=== PATIENT | female | born 1945 | race American Indian/Alaskan Native ===

== ENCOUNTER 2018-01-11 08:09 | Outpatient (CLI) | payer MEDICARE ==
--- NOTE | 2018-01-12 11:06 | Mammography Report ---
BILATERAL DIGITAL SCREENING MAMMOGRAM with CAD: 01/11/18 08:09:00 CLINICAL: Routine screening. COMPARISON:09/29/16 FINDINGS: The breasts are heterogeneously dense, which may obscure small masses. No mass, architectural distortion or suspicious calcifications. IMPRESSION: No mammographic evidence of malignancy. BI-RADS CATEGORY: 1 - - Negative RECOMMENDATION: Routine mammographic screening in one year. COMMENT: Patient follow-up letters are generated by our [employer] application.
== END 2018-01-11 08:10 | disposition home or self-care (01) ==
LOC: MAMMO 08:09
PROVIDERS: ATTEND Internal Medicine
DX: Z12.31 Encounter for screening mammogram for malignant neoplasm of breast (principal)
CPT/HCPCS: 77067

== ENCOUNTER 2019-02-14 08:26 | Outpatient (CLI) | payer MEDICARE ==
--- NOTE | 2019-02-14 09:45 | Mammography Report ---
BILATERAL DIGITAL SCREENING MAMMOGRAM with CAD : 02/14/19 08:26:00 CLINICAL: Routine screening. COMPARISON:01/11/18 FINDINGS: The breasts are heterogeneously dense, which may obscure small masses.A group of left inner predominantly punctate calcifications are stable. No mass, architectural distortion or suspicious calcifications. IMPRESSION: No mammographic evidence of malignancy. Benign left calcifications. BI-RADS CATEGORY: 2 -- Benign RECOMMENDATION: Routine mammographic screening in one year. COMMENT: Patient follow-up letters are generated by our [employer] application.
== END 2019-02-14 08:27 | disposition home or self-care (01) ==
LOC: MAMMO 08:26
PROVIDERS: ATTEND Internal Medicine
DX: Z12.31 Encounter for screening mammogram for malignant neoplasm of breast (principal); E78.00 Pure hypercholesterolemia, unspecified; I10 Essential (primary) hypertension; E66.9 Obesity, unspecified; Z90.89 Acquired absence of other organs
CPT/HCPCS: 77067

== ENCOUNTER 2020-07-09 09:42 | Outpatient (CLI) | payer MEDICARE ==
--- NOTE | 2020-07-09 12:25 | Mammography Report ---
BILATERAL DIGITAL SCREENING MAMMOGRAM WITH CAD HISTORY: Screening mammogram. TECHNIQUE: Routine digital mammographic imaging performed. This examination was interpreted with laura choi benefit of Computer-aided Detection analysis. COMPARISON: 02/14/2019, 01/11/2018, 09/29/2016, 01/21/2015. FINDINGS: Breast Density: scattered fibroglandular appearance of the breast tissue. Digital CC and MLO views demonstrate increasing calcifications in the left lower inner breast. No hopkins spicious findings in the right breast. IMPRESSION: Increasing left lower inner breast calcifications for which magnification views is recommended. BIRADS 0-Incomplete: Needs additional imaging evaluation NOTE: WE WILL RECALL THE PATIENT FOR THIS ADDITIONAL EVALUATION. FURTHER INFORMATION: According to the [employer], yearly mammograms are recommend ed starting at age 40 and continuing as long as a woman is in good health. Clinical Breast Exams shou ld be part of a periodic health exam-about every 3 years for women in their 20s and 30s and every yea r for women 40 and over. Breast self exam is an option for women starting in their 20s. Any breast ch jo ann noted on a breast self exam should be reported promptly to the patient's healthcare provider. Br east MRI is recommended for women with an approximately 20-25% or greater lifetime risk of breast can cer, including women with a strong family history of breast or ovarian cancer and women who have been treated for Hodgkin's disease. A negative Mammography report should not discourage follow up or biopsy of a clinically significant f inding and/or abnormality. Dense breast tissue may obscure small neoplasms. The patient will be entered into a reminder system with a target due date for the next screening mamm ogram. Signer Name: Mukesh Garcia MD Signed: 07/09/2020 12:20 PM Workstation Name: [id number]
== END 2020-07-09 09:43 | disposition home or self-care (01) ==
LOC: MAMMO 09:42
PROVIDERS: ATTEND Internal Medicine
DX: Z12.31 Encounter for screening mammogram for malignant neoplasm of breast (principal); N64.89 Other specified disorders of breast
CPT/HCPCS: 77067

== ENCOUNTER 2020-07-31 10:42 | Outpatient (CLI) | payer MEDICARE ==
--- NOTE | 2020-07-31 11:57 | Mammography Report ---
DIGITAL LEFT DIAGNOSTIC MAMMOGRAM WITH CAD, WITHOUT TOMOSYNTHESIS 07/31/2020 INDICATION: Abnormal screening mammogram TECHNIQUE: Digital left mammographic imaging was performed. Magnification views were obtained. This examination was interpreted with the benefit of Computer-aided Detection analysis. COMPARISON: Screening mammography 07/09/2020 and 02/14/2019 Breast Density: There are scattered areas of fibroglandular density. FINDINGS: The new grouped microcalcifications in the lower medial left breast remain indeterminate on magnification views. IMPRESSION: Indeterminate grouped microcalcifications Follow up recommendation: Stereotactic biopsy BI-RADS Category 4: Suspicious for Malignancy. A "normal" or negative report should not discourage follow up or biopsy of a clinically significant f inding. A written summary of these findings will be mailed to the patient. The patient will be entered into a mammography reporting system which will generate a reminder letter for the patient's next appointmen t at the appropriate interval. According to the [employer], yearly mammograms are recommended starting at age 40 and continuing as long as a woman is in good health. Breast MRI is recommended for women with an lorena roximately 20-25% or greater lifetime risk of breast cancer, including women with a strong family his tory of breast or ovarian cancer and women who have been treated for Hodgkin's disease. Signer Name: Chase Morris MD Signed: 07/31/2020 11:52 AM Workstation Name: [id number]
== END 2020-07-31 10:43 | disposition home or self-care (01) ==
LOC: MAMMO 10:42
PROVIDERS: ATTEND Internal Medicine
DX: R92.0 Mammographic microcalcification found on diagnostic imaging of breast (principal)

== ENCOUNTER 2020-08-20 08:54 | Outpatient (CLI) | payer MEDICARE ==
--- NOTE | 2020-08-20 11:28 | Mammography Report ---
PERCUTANEOUS STEREOTACTIC-GUIDED LEFT BREAST BIOPSY WITH MARKER PLACEMENT HISTORY: Left breast calcifications. COMPARISON: 07/31/2020, 07/09/2020. CONSENT: Technique, risks and alternatives were discussed with the patient and informed written conse nt obtained. PROCEDURE: The patient was placed in the prone position on the Siemens biopsy table. The calcifications in quest ion in the left lower inner breast were targeted mammographically. Information Services Vice President and stereo pair images were acquired to generate the computer-derived coordinates for targeting. The skin overlying the chosen bi opsy site were cleansed with Betadine. The skin and superficial soft tissues were anesthetized with a small amount of buffered 1% lidocaine. The deeper soft tissues were anesthetized with buffered 1% lidocaine with epinephrine. A small dermatotomy was created through which the vacuum-assisted biopsy device was placed. Pre and p ost fire stereo pair images were acquired to confirm appropriate needle trajectory. Using vacuum assi stance, multiple core specimen samples were acquired. A post procedure stereo pair image suggested ad equate sampling of the target. A post procedure specimen radiograph confirmed calcifications within c ore specimen samples. A biopsy marker was deposited at the biopsy site, and appropriate biopsy marke r deposition confirmed via subsequent post procedure mammograms. Manual pressure was applied at the biopsy site to achieve hemostasis. The incision margins were appro ximated with Steri-Strips. Postprocedure care instructions were administered in both verbal and writt en forms. The patient voiced understanding and departed the [facility] in stable, satisfactory con dition. IMPRESSION Technically successful stereotactic guided biopsy of left lower inner breast calcifications. An addendum will be added to this report once pathology results are available. Signer Name: Mukesh Garcia MD Signed: 08/20/2020 11:24 AM Workstation Name: [id number]
--- NOTE | 2020-08-20 11:30 | Mammography Report ---
LEFT DIAGNOSTIC MAMMOGRAM INDICATION: Left breast calcifications, status post stereotactic biopsy. COMPARISON: 07/31/2020, 07/09/2020 FINDINGS: Left breast CC and LM projection mammograms were obtained. These document the accurate location of a biopsy marker following stereotactic biopsy of left lower inner breast calcifications. A few residual calcifications persist. IMPRESSION: Mammographic images document accurate location of biopsy marker status post stereotactic biopsy of le ft lower inner breast calcifications. BI-RADS Category 4: Suspicious for Malignancy. Signer Name: Mukesh Garcia MD Signed: 08/20/2020 11:25 AM Workstation Name: [id number]
== END 2020-08-20 08:55 | disposition home or self-care (01) ==
LOC: SPVWC 08:54
PROVIDERS: ATTEND Internal Medicine
DX: R92.8 Other abnormal and inconclusive findings on diagnostic imaging of breast (principal); R92.1 Mammographic calcification found on diagnostic imaging of breast
CPT/HCPCS: 19081; 77065; 88305; A4648; 88341; 88342

== ENCOUNTER 2020-09-16 14:47 | Outpatient (CLI) | payer MEDICARE ==
--- NOTE | 2020-09-17 08:29 | Magnetic Resonance Report ---
Bilateral breast MRI with and without contrast. History: New diagnosis left breast cancer Procedure: Axial T1 and T2-weighted fat-sat images were obtained precontrast. 16 cc MultiHance was i njected intravenously and serial axial T1-weighted images with fat saturation were obtained postcontr ast. 3-D MIP projections, Kinetic analysis and subtraction imaging was utilized to evaluate. A Shareable Social 8 channel breast coil was utilized for image acquisition. Comparison: Left mammogram 07/31/2020 Findings: Background level of enhancement is minimal. No suspicious axillary or clavicular nodes are identified. No abnormal bone marrow signal is seen. No significant chest wall enhancement is noted. Right breast: No suspicious lesions are seen. Left breast: Biopsy changes are noted minimal surrounding hyperemia. No obvious neoplastic type enhan cement is seen. Impression: No suspicious lesions are seen BIRADS: 6: Known diagnosis breast cancer Signer Name: Chase Morris MD Signed: 09/17/2020 8:24 AM Workstation Name: [id number]
== END 2020-09-16 14:48 | disposition home or self-care (01) ==
LOC: SPVIMAG 14:47
PROVIDERS: ATTEND Surgery
DX: K76.89 Other specified diseases of liver (principal); R92.1 Mammographic calcification found on diagnostic imaging of breast; N60.82 Other benign mammary dysplasias of left breast; Z80.3 Family history of malignant neoplasm of breast
CPT/HCPCS: A9577; C8908; 77049

== ENCOUNTER 2020-10-29 07:27 | Outpatient (CLI) | payer MEDICARE ==
--- NOTE | 2020-10-29 10:01 | Ultrasound Report ---
ULTRASOUND ABDOMEN, COMPLETE INDICATION: ATTENTION TO LIVER. COMPARISON: No relevant prior imaging study available. FINDINGS: Pancreas: No significant abnormality. Abdominal Aorta: Proximal aorta is incompletely visualized. The mid and distal aorta appear normal in size. IVC: No significant abnormality. Liver: The liver measures 15 cm in length. Diffusely echogenic appearance of the liver with a 1.3 cm cyst in the right lobe. Normal hepatopedal blood flow in the main portal vein. Gallbladder: There is cholelithiasis with layering gallstones measuring up to 2.5 cm in maximal dimen luis. Bile ducts: No significant abnormality. Common bile duct measures 6 mm. Kidneys: Right: 10.3 cm in length. Rounded hyperechoic focus measuring 1.2 cm in maximal dimension the upper pole. Left: 10.2 cm in length. No significant abnormality. Spleen: No significant abnormality. Free fluid: None. Additional Findings: There is a rounded hyperechoic masslike area measuring 5.3 cm maximal dimension between the liver and right kidney, likely in the region of the adrenal gland. IMPRESSION: 1. Diffusely echogenic appearance of the liver, most commonly seen with steatosis. Small simple right hepatic lobe cyst also noted. 2. Cholelithiasis without cholecystitis. 3. Small rounded hyperechoic focus in the upper pole of the right kidney could represent an angiomyol ipoma. 4. Hyperechoic masslike structure in the region of the right adrenal gland most likely represents an adrenal mass. Recommend follow-up pre and postcontrast CT for further evaluation of this finding and the right renal finding. Signer Name: Hector Shields MD Signed: 10/29/2020 9:57 AM Workstation Name: [id number]
== END 2020-10-29 07:28 | disposition home or self-care (01) ==
LOC: US 07:27
PROVIDERS: ATTEND Surgery
DX: R92.8 Other abnormal and inconclusive findings on diagnostic imaging of breast (principal); K76.0 Fatty (change of) liver, not elsewhere classified; K80.20 Calculus of gallbladder without cholecystitis without obstruction; K76.89 Other specified diseases of liver
CPT/HCPCS: 76700

== ENCOUNTER 2020-11-05 06:11 | Day surgery (SDC) | payer MEDICARE ==
[~2020-11-05 06:11] MED LIST: BUPIVACAINE/PF (0.25%) 2.5 MG/ML 30 ML VIAL INFILTRATI ONE; LIDOCAINE (1%) 10 MG/1 ML VIAL 20 ML MDV INFILTRATI ONE; SODIUM CHLORIDE 0.9% IRR 1,500 ML BOTTLE IR ONE; ceFAZolin/Water 2 GM/20 ML 2 GM/20 ML SYRINGE IV NR
[2020-11-05] MEDS ORDERED: LIDOCAINE (1%) 10 MG/1 ML VIAL 20 ML MDV ONE ×2 (07:30→09:37)
[2020-11-05] MEDS ORDERED: MIDAZOLAM 2 MG/2 ML INJ IV NR (08:05)
[2020-11-05] MEDS ORDERED: LACTATED RINGERS 1,000 ML IV SCH (08:15)
[2020-11-05] MEDS ORDERED: HYDROmorphone 1 MG/1 ML INJ IV PRN ×2 (08:24)
[2020-11-05] MEDS ORDERED: ONDANSETRON 4 MG/2 ML INJ IV PRN (08:24)
--- NOTE | 2020-11-05 08:25 | Anesthesia Day of Surgery ---
Anesthesia Day of Surgery - Day of Surgery Patient Examined: Yes Patient H&P Reviewed: Yes Patient is NPO: Yes
--- NOTE | 2020-11-05 08:26 | Anesthesia Consultation ---
Anesthesia Consult and Med Hx Date of service: 11/05/20 - Airway Anesthetic Teeth Evaluation: Good, Partials ROM Head & Neck: Adequate Mental/Hyoid Distance: Adequate Mallampati Class: Class II Intubation Access Assessment: Good - Pre-Operative Health Status ASA Pre-Surgery Classification: ASA2 Proposed Anesthetic Plan: General - Pulmonary Hx Smoking: Yes (Former) Hx Respiratory Symptoms: No (+2FS) - Cardiovascular System Hx Hypertension: Yes - Central Nervous System Hx Psychiatric Problems: No - Gastrointestinal Hx Gastroesophageal Reflux Disease: No - Hematic Hx Sickle Cell Disease: No - Other Systems Hx Alcohol Use: Yes (Occas) Hx Cancer: Yes - Additional Comments Anesthesia Medical History Comments: +Medical clearance
[2020-11-05] MEDS ORDERED: BUPIVACAINE/PF (0.25%) 2.5 MG/ML 30 ML VIAL INFILTRATI ONE ×2 (09:38→11:05)
--- NOTE | 2020-11-05 09:51 | Mammography Report ---
LEFT BREAST NEEDLE LOCALIZATION USING X-RAY GUIDANCE The procedure was explained to the patient and informed consent obtained. PROCEDURE: Using 3 mL of 1% buffered lidocaine, a 25 gauge needle and x-ray guidance, the left breas t clip/mass at 9:00 was localized with standard needle/wire technique. There were no immediate compli cations. INTERPRETATION: 2 images made during the procedure demonstrate the needle to be properly positioned. IMPRESSION: Successful left breast lesion localization as described above. Thank you for allowing us to participate in the care of your patient. Signer Name: Alexei Aguilar Jr, MD Signed: 11/05/2020 9:47 AM Workstation Name: [id number]
[2020-11-05] MEDS ORDERED: LIDOCAINE MPF (2%) 20 MG/1 ML VIAL 5 ML ONE (10:27)
[2020-11-05] MEDS ORDERED: dexAMETHasone 20 MG/5 ML VIAL ONE (10:27)
[2020-11-05] MEDS ORDERED: propofoL 200 MG/20 ML VIAL IV ONE (10:27)
[2020-11-05] MEDS ORDERED: ONDANSETRON 4 MG/2 ML INJ ONE (10:27)
[2020-11-05] MEDS ORDERED: HYDROmorphone 1 MG/1 ML INJ ONE (10:27)
[2020-11-05] MEDS ORDERED: KETOROLAC 30 MG/1 ML INJ ONE (10:27)
[2020-11-05] MEDS ORDERED: LIDOCAINE (1%) 10 MG/1 ML VIAL 20 ML MDV INFILTRATI ONE (11:05)
[2020-11-05] MEDS ORDERED: SODIUM CHLORIDE 0.9% IRR 1,500 ML BOTTLE IR ONE (11:16)
--- NOTE | 2020-11-05 11:50 | Operative Report ---
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 Recommendations are to proceed with left breast excisional biopsy to rule out malignancy. She wished to proceed with the above procedure. Procedure in detail: The patient was taken to radiology for wire placement for localization known area of concern. Patient was then taken to the operating room. Gen. anesthesia was administered. Left breast and axilla were prepped and draped in the normal sterile operative fashion. The wire was identified around 9:00 position 7-9 cm FN. Timeout was performed. Attention was then taken towards the left breast. A 9:00 periareolar breast incision was made with a 15 blade knife and dissection taken down to subcutaneous tissues. First began raising of the anterior flap with removal of the wire from the skin with dissection take down posteriorly past the wire, followed by raising of the superior flap, inferior flap and medial flap with all flaps taken down posteriorly past the wire. The breast area of concern was appropriately removed posteriorly with the aid of the Bovie cautery. The wire was not encountered. Specimen was marked and then sent to pathology and radiology; radiograph specimen with wire and clip present. Breast cavity was irrigated and hemostasis was obtained. Breast cavity was anesthesized wtih 1% lidocained mixed with quarter percent marcaine withou epinephrine. The posterior deep breast tissues were approximated and closed using interrupted 3-0 Vicryl. The subcutaneous tissues were approximated and closed using interrupted 3-0 Vicryl followed by closing of the skin with a running 4-0 Monocryl and skin affix. The patient tolerated surgery very well and she was awaken from anesthesia without any complication and transported to PACU in good condition.
--- NOTE | 2020-11-05 11:54 | Short Stay Summary ---
Short Stay Documentation Date of service: 11/05/20 - History H&P: obtained from office - Allergies and Medications Current Medications: Allergies No Known Allergies Allergy (Unverified 10/30/20 11:05) Home Medications Medication Instructions Recorded Confirmed Last Taken Type Ibuprofen [Motrin] 800 mg PO Q8HR PRN 10/31/20 10/31/20 Unknown History Meloxicam [Mobic] 15 mg PO DAILY PRN 10/31/20 10/31/20 Unknown History Triamterene/Hydrochlorothiazid 1 each PO DAILY 10/31/20 11/05/20 11/04/20 History [Triamterene-Hctz 37.5-25 mg Cp] amLODIPine [Norvasc] 10 mg PO DAILY 10/31/20 11/05/20 11/05/20 04:30 History oxyCODONE /ACETAMINOPHEN [Percocet 1 tab PO Q6HR PRN #12 tablet 11/05/20 Unknown Rx 5/325] Active Medications Hydromorphone HCl (Hydromorphone 1 Mg/1 Ml Inj) 0.25 mg IV Q10MIN PRN PRN Reason: Pain, Moderate (4-6) Stop: 11/05/20 23:00 Hydromorphone HCl (Hydromorphone 1 Mg/1 Ml Inj) 0.5 mg IV Q10MIN PRN PRN Reason: Pain , Severe (7-10) Stop: 11/05/20 23:00 Cefazolin Sodium (Ancef/Sterile Water 2 Gm/20 Ml) 2 gm in 20 mls @ 80 mls/hr IV PREOP NR; Protocol Stop: 11/05/20 23:59 Lactated Ringer's (Lactated Ringers) 1,000 mls @ 75 mls/hr IV DIRECT IRVING Last Admin: 11/05/20 08:32 Dose: 75 mls/hr Documented by: Midazolam HCl (Midazolam 2 Mg/2 Ml Inj) 2 mg IV ONCE NR Stop: 11/05/20 23:00 Last Admin: 11/05/20 08:32 Dose: 2 mg Documented by: Ondansetron HCl (Ondansetron 4 Mg/2 Ml Inj) 4 mg IV ONCE PRN PRN Reason: Nausea And Vomiting Stop: 11/05/20 23:00 - Brief post op/procedure progress note Date of procedure: 11/05/20 Pre-op diagnosis: Left breast LCIS and papilloma Post-op diagnosis: same Procedure: Left breast needle localization excisional biopsy Anesthesia: GETA Findings: left wire and clip present Surgeon: JOANNE RESTREPO Estimated blood loss: minimal Pathology: list (left breast excisional biopsy) Specimen disposition: to lab Condition: stable - Disposition Condition at discharge: Good Disposition: DC-01 TO HOME OR SELFCARE Short Stay Discharge Plan Activity: other (no heavy lifting) Diet: regular Wound: keep clean and dry (wear breast binder; may shower in 48 hours; no baths) Follow up with: JOANNE RESTREPO MD [Staff Physician] - 7 Days Prescriptions: oxyCODONE /ACETAMINOPHEN [Percocet 5/325] 1 tab PO Q6HR PRN #12 tablet PRN Reason: Pain
--- NOTE | 2020-11-05 12:03 | Mammography Report ---
MAMMOGRAPHY SURGICAL SPECIMEN HISTORY: Post excisional biopsy COMPARISON: The localization performed earlier today. FINDINGS: A single mammographic image containing the specimen, surgical clip, ill-defined breast nodu le and localization wire is presented. IMPRESSION: Successful excisional biopsy. Please correlate with margins from formal pathology report. Signer Name: Alexei Aguilar Jr, MD Signed: 11/05/2020 11:58 AM Workstation Name: [id number]
[2020-11-05 12:51] VITALS: BP 132/69
--- NOTE | 2020-11-05 14:11 | Post Anesthesia Evaluation ---
- Post Anesthesia Evaluation Patient Participated: Yes Airway Patent: Yes Stable Respiratory Function: Yes Nausea/Vomiting: No Temp > 96.8F: Yes Pain Manageable: Yes Adequeate Hydration: Yes Anesthesia Complications: No Block Receding Appropriately: Not Applicable Patient on Ventilator: No
== END 2020-11-05 13:15 | disposition home or self-care (01) ==
LOC: OR 06:11
PROVIDERS: ATTEND Surgery
DX: D24.2 Benign neoplasm of left breast (principal); I10 Essential (primary) hypertension; M19.90 Unspecified osteoarthritis, unspecified site; Z85.3 Personal history of malignant neoplasm of breast; Z98.51 Tubal ligation status; Z79.899 Other long term (current) drug therapy; Z87.891 Personal history of nicotine dependence; Z86.19 Personal history of other infectious and parasitic diseases; Z98.49 Cataract extraction status, unspecified eye; Z90.710 Acquired absence of both cervix and uterus; Z98.890 Other specified postprocedural states; Z72.89 Other problems related to lifestyle
CPT/HCPCS: 19125; 19281; 36415; 76098; 84132; 88307; J0690; J1100; J1170; J1885; J2250; J2405; J2704; J7120; U0003

== ENCOUNTER 2020-11-25 07:30 | Outpatient (CLI) | payer MEDICARE ==
[2020-11-25 08:57] LABS: Blood Urea Nitrogen 11 mg/dL (7-17)
--- NOTE | 2020-11-25 10:35 | Cat Scan Report ---
CT ABDOMEN AND PELVIS WITH CONTRAST INDICATION / CLINICAL INFORMATION: OTHER BENIGN MAMMARY DYSPLASIAS. TECHNIQUE: Axial CT images were obtained through the abdomen and pelvis following the administration of intraven ous contrast. All CT scans at this location are performed using CT dose reduction for ALARA by means of automated exposure control. COMPARISON: Ultrasound abdomen dated 10/29/2020. FINDINGS: LOWER CHEST: LIVER: There are a few small hypodensities within the liver which are compatible with cysts. GALLBLADDER: There are 2 large calcified gallstones. No gallbladder wall thickening or pericholecysti c edema. PANCREAS: No significant abnormality. SPLEEN: No significant abnormality. ADRENALS: No significant abnormality. KIDNEYS / URETERS: There is a 5.2 x 4.8 x 3.8 cm predominantly fat density mass arising from the late ral aspect of the right kidney. This demonstrates internal vascularity and has a small enhancing comp onent inferiorly. There is no evidence of active hemorrhage. URINARY BLADDER: No significant abnormality. REPRODUCTIVE ORGANS: No significant abnormality. STOMACH / SMALL BOWEL: No significant abnormality. COLON: No significant abnormality. APPENDIX: No significant abnormality. PERITONEUM: No free fluid. No free air. No fluid collection. LYMPH NODES: No significant adenopathy. AORTA / ARTERIES: No significant abnormality. IVC / VEINS: No significant abnormality. SKELETAL SYSTEM: Mild S-shaped scoliosis involving the thoracolumbar spine. Moderate multilevel degen erative spondylosis throughout the lumbar spine. ADDITIONAL FINDINGS: None. IMPRESSION: 1. 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 There is a small enhancing component inferiorly. No evidence of hemorrhage. C ontinued follow-up is recommended. 2. Uncomplicated cholelithiasis. 3. No acute abdominopelvic abnormality. Signer Name: Jonathon Christian MD Signed: 11/25/2020 10:30 AM Workstation Name: [id number]
== END 2020-11-25 07:31 | disposition home or self-care (01) ==
LOC: CT 07:30
PROVIDERS: ATTEND Surgery
DX: K80.20 Calculus of gallbladder without cholecystitis without obstruction (principal); K76.89 Other specified diseases of liver; K82.8 Other specified diseases of gallbladder; M41.85 Other forms of scoliosis, thoracolumbar region; M47.816 Spondylosis without myelopathy or radiculopathy, lumbar region; N60.82 Other benign mammary dysplasias of left breast
CPT/HCPCS: 36415; 74177; 82565; 84520; Q9967

== ENCOUNTER 2021-03-05 09:03 | Outpatient (CLI) | payer MEDICARE ==
--- NOTE | 2021-03-05 10:12 | Mammography Report ---
DIGITAL DIAGNOSTIC MAMMOGRAM WITH CAD CONVENTIONAL, 03/05/2021 CLINICAL INFORMATION / INDICATION: Patient presents for short interval follow-up following benign lef t breast excisional biopsy. OTHER BENIGN MAMMARY DYSPLASIAS N60.82 TECHNIQUE: Digital left mammographic imaging was performed. This examination was interpreted with the benefit of Computer-aided Detection analysis. COMPARISON: Prior mammogram 07/09/2020 FINDINGS: Breast Density: There are scattered areas of fibroglandular density. No dominant mass, suspicious calcifications or architectural distortion in the left breast. There is new benign postlumpectomy change seen in the lower inner quadrant of the left breast. The pr eviously seen suspicious calcifications have been removed. IMPRESSION: 1. New benign postlumpectomy change in the left breast. No suspicious mammographic abnormality identi fied. Follow up recommendation: Back to schedule. BI-RADS Category 2: Benign. A "normal" or negative report should not discourage follow up or biopsy of a clinically significant f inding. A written summary of these findings will be mailed to the patient. The patient will be entered into a mammography reporting system which will generate a reminder letter for the patient's next appointmen t at the appropriate interval. According to the [employer], yearly mammograms are recommended starting at age 40 and continuing as long as a woman is in good health. Breast MRI is recommended for women with an lorena roximately 20-25% or greater lifetime risk of breast cancer, including women with a strong family his tory of breast or ovarian cancer and women who have been treated for Hodgkin's disease. Signer Name: Jazmyne Funes MD Signed: 03/05/2021 10:08 AM Workstation Name: [id number]
== END 2021-03-05 09:04 | disposition home or self-care (01) ==
LOC: SPVWC 09:03
PROVIDERS: ATTEND Surgery
DX: N60.82 Other benign mammary dysplasias of left breast (principal); N64.89 Other specified disorders of breast